=== PATIENT | male | born 1985 | race Caucasian/White ===

== ENCOUNTER 2018-05-15 10:46 | Emergency (ER) | payer SELFPAY ==
[~2018-05-15] VITALS: Ht 177.8 cm; Wt 91.0 kg
[2018-05-15] MEDS ORDERED: ONDANSETRON HCL 4MG/2ML INJ IV STA (14:25)
[2018-05-15] MEDS ORDERED: SODIUM CHLORIDE 0.9% 1,000 ML IV ONE (14:25)
[2018-05-15 15:22] LABS: BASOPHILS % 0.2 % (0.0-2.0); LYMPHOCYTES % 18.6 % (20.0-50.0); MEAN CORPUSCULAR HEMOGLOBIN 30.6 pg (28.0-32.0); MEAN CORPUSCULAR VOLUME 89.7 fL (80.0-94.0); MEAN PLATELET VOLUME 9.4 fl (7.4-10.4); MONOCYTES % 6.2 % (2.0-8.0); PLATELET 279 x1000/uL (130-400); RED BLOOD CELL COUNT 5.24 mill/uL (4.7-6.1); RED CELL DISTRIBUTION WIDTH 12.8 % (11.6-14.6)
[2018-05-15 15:29] LABS: INR 1.1; PROTHROMBIN TIME 10.9 sec (9.1-11.1)
[2018-05-15 15:39] LABS: CHLORIDE 106 mEq/L (98-107)
[2018-05-15 15:43] LABS: ETHANOL BLOOD < 10 mg/dL
[2018-05-15 15:48] LABS: CREATINE KINASE 53 IU/L (39-308)
[2018-05-15 19:00] LABS: *BARBITURATES SCREEN URINE NEGATIVE (NEGATIVE); *BENZODIAZEPINES SCREEN URINE NEGATIVE (NEGATIVE)
[2018-05-15 19:02] LABS: *AMPHETAMINES SCREEN URINE PRESUMTIVE POSITIVE (NEGATIVE); *COCAINE SCREEN URINE NEGATIVE (NEGATIVE); CANNABINOID URINE SCREEN NEGATIVE (NEGATIVE); OPIATES URINE SCREEN NEGATIVE (NEGATIVE); PHENCYCLIDINE URINE SCREEN NEGATIVE (NEGATIVE)
[2018-05-15 19:03] LABS: METHADONE URINE SCREEN NEGATIVE (NEGATIVE)
[2018-05-15 20:33] VITALS: BP 126/70
== END 2018-05-15 20:35 | disposition home or self-care (01) ==
LOC: ER 10:46
DX: E86.0 Dehydration (principal); T43.621A Poisoning by amphetamines, accidental (unintentional), initial encounter; F15.10 Other stimulant abuse, uncomplicated; F12.90 Cannabis use, unspecified, uncomplicated; R42 Dizziness and giddiness; Y92.89 Other specified places as the place of occurrence of the external cause; M25.562 Pain in left knee; G89.29 Other chronic pain
CPT/HCPCS: 36415; 80053; 80305; 82550; 83690; 83880; 84484; 85025; 85610; 85730; 93005; 96361; 96374; 99285; G0482; J2405; J7030